=== PATIENT | male | born 1955 | race African-American/Black ===

== ENCOUNTER 2021-02-20 10:39 | Outpatient (CLI) | payer OTHER, MEDICAID | END 2021-02-20 10:40 | disposition home or self-care (01) | LOC: BICULT 10:39 | PROVIDERS: ATTEND General Practice | DX: K21.9 Gastro-esophageal reflux disease without esophagitis (principal) | CPT/HCPCS: 76705 ==

== ENCOUNTER 2021-09-19 08:48 | Outpatient (CLI) | payer MEDICARE, MEDICAID | END 2021-09-19 08:49 | disposition home or self-care (01) | LOC: BICRAD 08:48 | DX: M12.812 Other specific arthropathies, not elsewhere classified, left shoulder (principal); M75.32 Calcific tendinitis of left shoulder ==